=== PATIENT | male | born 1950 | race Caucasian/White ===

== ENCOUNTER 2021-12-22 11:58 | Observation (INO) ==
--- NOTE | 2021-11-25 12:04 | PAT Medication Instructions ---
Medication Instructions Date of Service November 25, 2021 Home Medications atorvastatin 40 mg tablet 40 mg PO PM bupropion HCl 300 mg 24 hr tablet, extended release 300 mg PO QAM clonazepam 0.5 mg tablet 0.5 mg PO BID dutasteride 0.5 mg capsule 0.5 mg PO QAM gabapentin 600 mg tablet 600 mg PO BID lamotrigine 200 mg tablet (Lamictal) 200 mg PO BID lisinopril 10 mg tablet 10 mg PO QAM multivitamin 1 tab PO QAM DO NOT take the morning of surgery lisinopril 10 mg tablet 10 mg PO QAM multivitamin 1 tab PO QAM Take morning of surgery With a small sip of water, OTHERWISE NOTHING TO EAT OR DRINK AFTER MIDNIGHT: bupropion HCl 300 mg 24 hr tablet, extended release 300 mg PO QAM clonazepam 0.5 mg tablet 0.5 mg PO BID dutasteride 0.5 mg capsule 0.5 mg PO QAM gabapentin 600 mg tablet 600 mg PO BID lamotrigine 200 mg tablet (Lamictal) 200 mg PO BID Take evening before surgery atorvastatin 40 mg tablet 40 mg PO PM clonazepam 0.5 mg tablet 0.5 mg PO BID gabapentin 600 mg tablet 600 mg PO BID lamotrigine 200 mg tablet (Lamictal) 200 mg PO BID Other Notes If you have any questions please call us at [phone] or [phone] or [phone] or [phone]
--- NOTE | 2021-11-26 13:25 | Anesthesiology Consultation ---
Date of Service November 26, 2021 Assessment & Plan (1) Encounter for pre-operative examination: - COVID screening: Per assessment on 11/26: No known COVID-19 positive contacts or current COVID-19 related symptoms. Travel screen negative. Surgeon arranging preop COVID testing (being done 12/17 d/t the holiday; [facility]). Awaiting results. - PCP office visit (11/09/21): "Medically cleared for surgery.. Has no cardiopulmonary symptoms." Chart Review Chart Review: Acceptable Risk for Surgery and Patient seen in Pre Admission Testing History Surgery Operation Date: 12/22/21 14:45 Proposed Procedures p Right Total Knee Arthroplasty - Everton Dsouza MD Height/Weight Height: 6 ft 3 in Weight: 109.4 kg Allergies Allergy/AdvReac Type Severity Reaction Status Date / Time No Known Allergies Allergy Verified 11/25/21 08:44 Medications Home Medications Medication Instructions Recorded Confirmed Last Taken atorvastatin 40 mg tablet 40 mg PO PM 11/25/21 11/25/21 Unknown bupropion HCl 300 mg 24 hr tablet, 300 mg PO QAM 11/25/21 11/25/21 Unknown extended release clonazepam 0.5 mg tablet 0.5 mg PO BID 11/25/21 11/25/21 Unknown dutasteride 0.5 mg capsule 0.5 mg PO QAM 11/25/21 11/25/21 Unknown gabapentin 600 mg tablet 600 mg PO BID 11/25/21 11/25/21 Unknown lamotrigine 200 mg tablet 200 mg PO BID 11/25/21 11/25/21 Unknown (Lamictal) lisinopril 10 mg tablet 10 mg PO QAM 11/25/21 11/25/21 Unknown multivitamin 1 tab PO QAM 11/25/21 11/25/21 Unknown Past Medical History Medical History Anxiety and depression Arthritis Bipolar disorder BPH (benign prostatic hyperplasia) History of COVID-19 Dx 03/2021 > symptoms at time: chills, fever > resolved Hyperlipidemia Hypertension Sleep apnea CPAP Exercise / Class Metabolic Activity II 4-5 Yardwork/Stairs/Walk up hill (one FS (no CP, no SOB)) Past Family History Family History Other No family history of adverse response to anesthesia Past Surgical History Surgical History H/O vasectomy History of arthroscopy RT/LEFT KNEE History of bladder surgery History of cataract surgery RT/LEFT History of colonoscopy History of tonsillectomy and adenoidectomy [place] teeth removed Past Anesthesia History No Hx of Anesthesia Complications and No Family Hx of Anesthesia Complications History of PONV No Hx of PONV and No Hx of Motion Sickness Social History Smoking Status: Never smoker Do You Dip or Chew Tobacco: No Hx Alcohol Use: Yes Alcohol type: hard liquor alcohol intake frequency: 0-2 drinks per day (1 drink/night) Hx Substance Use: No substance use type: does not use Review of Systems Patient denies chest pain, shortness of breath, dyspnea on exertion, fever, chills, cough, wheezing, palpitations. Physical Exam Vital Signs VITALS BP 114/65 P 55 TEMP 98.6 SP02 97%RA RESP 16 PHYSICAL Full cervical extension range of motion. Full TMJ range of motion. TMD 3 finger breaths Mallampati Score 1 Dentition: intact Lungs: clear throughout to auscultation Cardiac: regular rate and rhythm with occasional extra beats, no murmurs noted Spine: normal Carotid arteries: negative bruit Extremities: no edema Lab Results Anesthesia Preop Results Results Anesthesia Widget: PT 11.0 Seconds (9.0-12.0) 11/26/21 PTT 25.9 Seconds (21.0-31.0) 11/26/21 INR 1.0 (0.9-1.1) 11/26/21 HA1c 5.6 % (4.5-5.6) 11/26/21 Blood Type B Positive 11/26/21 Antibody Screen NEGATIVE 11/26/21 Testing Laboratory Results 10/27/21 SODIUM 144 POTASSIUM 4.4 CHLORIDE 28.5 CO2 105 BUN 20 CREATININE 1.08 GLUCOSE 110 UA bacteria none seen, negative leuk est/nitrite/blood Electrocardiogram Date: 11/09/21 SR with frequent ectopic ventricular beats at 72bpm. LAE. EKG done at PCP preop appt* Chest X-Ray Date: 11/26/21 FINDINGS: Frontal and lateral radiographs of the chest demonstrate the cardiomediastinal silhouette to be within normal limits. The lungs are clear of alveolar opacities. There is no evidence for effusion bilaterally. There is no evidence for vascular congestion. There is no acute osseous pathology. IMPRESSION: No acute cardiopulmonary disease.
--- NOTE | 2021-12-21 19:07 | History & Physical Report ---
Date of Service December 21, 2021 Assessment & Plan (1) Primary osteoarthritis of right knee: Plan: Treatment options discussed with the patient. He has failed conservative measures and would like to proceed with surgery. Risks, benefits and alternatives to surgery including but not limited to infection, DVT, pain, stiffness, need for revision surgery, damage to blood vessels, damage to nerves, PE, , were discussed with the patient and they wish to proceed. Plan on right total knee arthroplasty. Surgery scheduled for [facility] on 12/22/[address] Dsouza. Plan on OPPT post op. Will plan on aspirin 81mg BID for 1 mo post op for DVT prophylaxis. All quesitons answered. F/u post op. History of Present Illness Chief Complaint: Right knee pain Primary Care Provider: Self, Referred 71 year old male with PMHx significant for HTN, REMI, high cholesterol, bipolar disorder who presents with ongoing right knee pain. Pain interfering with his daily activities. He has failed conservative measures and would like to proceed with knee replacement. Patient denies headaches, sweats, fevers, chills, double vision, blurred vision, cough, sore throat, dysphagia, chest pain, sob, wheezing, n/v/d/c, numbness, tingling, fatigue, urinary symptoms, mood disorders. ROS positive for right knee pain and stiffness. Allergies Allergy/AdvReac Type Severity Reaction Status Date / Time No Known Allergies Allergy Verified 11/25/21 08:44 Home Medications Medication Instructions Recorded Confirmed Type atorvastatin 40 mg tablet 40 mg PO PM 11/25/21 11/25/21 History bupropion HCl 300 mg 24 hr tablet, 300 mg PO QAM 11/25/21 11/25/21 History extended release clonazepam 0.5 mg tablet 0.5 mg PO BID 11/25/21 11/25/21 History dutasteride 0.5 mg capsule 0.5 mg PO QAM 11/25/21 11/25/21 History gabapentin 600 mg tablet 600 mg PO BID 11/25/21 11/25/21 History lamotrigine 200 mg tablet 200 mg PO BID 11/25/21 11/25/21 History (Lamictal) lisinopril 10 mg tablet 10 mg PO QAM 11/25/21 11/25/21 History multivitamin 1 tab PO QAM 06/09/22 06/09/22 History Past Med/Surg History Medical History Anxiety and depression Arthritis Bipolar disorder BPH (benign prostatic hyperplasia) History of COVID-19 Dx 03/2021 > symptoms at time: chills, fever > resolved Hyperlipidemia Hypertension Sleep apnea CPAP Surgical History H/O vasectomy History of arthroscopy RT/LEFT KNEE History of bladder surgery History of cataract surgery RT/LEFT History of colonoscopy History of tonsillectomy and adenoidectomy [place] teeth removed Family History Other No family history of adverse response to anesthesia Social History Smoking Status: Never smoker Second Hand Exposure: No; Hx Alcohol Use: Yes Alcohol type: hard liquor Hx Substance Use: No Preferred Language: Kinyarwanda Outside Repairer Special Required: No Beliefs That Will Affect Care: None Current Living Situation: Spouse Feels Safe at Home: Yes Assistive Devices: CPAP and Glasses Review of Systems All systems reviewed & are unremarkable except as noted in HPI & below Physical Exam Constitutional: well developed and well nourished; no acute distress Eyes: PERRL, conjunctivae normal, anicteric sclerae ENMT: external ear and nose normal, oropharynx normal Neck: trachea midline, no thyromegaly Respiratory: normal respiratory effort, lungs clear to auscultation Cardiovascular: RRR, no murmur, no edema Musculoskeletal: Right knee: Valgus alignment. Moderate effusion. Lateral joint line tenderness, medial patellar and lateral patellar tenderness. Moderate crepitation. Positive Kendell's. Stable to valgus and varus stress. ROM 0-130 degrees Skin: no rashes, warm and dry Neurologic: patellar DTR's 2+ bilat, sensation intact Psychiatric: A+Ox3, euthymic affect Results & Data ([facility]) Diagnostic Findings Right knee: Tricompartmental degenerative changes. Valgus alignment bone on bone lateral compartment. There is periarticular osteophyte formation.
[~2021-12-22 11:58] MED LIST: ACETAMINOPHEN 500 MG TAB PO SCH; BUPIVACAINE 0.25% 30 ML VIAL ONE; BUPIVACAINE 0.5 % 5 MG/1 ML PF 10ML VIAL ONE; CeleBREX 200 MG CAP PO SCH; FAMOTIDINE 20 MG TAB PO SCH; GABAPENTIN 300 MG CAP PO SCH; LR 500ML BOLUS, THEN 15ML/HR IV SCH; METOCLOPRAMIDE HCL 10 MG TABLET PO SCH; ROPIVACAINE 0.5% HCL/PF 150 MG, BUPIVACAINE 0.75% MPF 20 ML, EPINEPHrine 30MG/30ML (OR ... INSTIL SCH; TRANEXAMIC ACID 1,000 MG **IV Intra-op IV SCH; TRANEXAMIC ACID 1,000 MG **IV Pre-op IV SCH; ceFAZolin 2000MG 2,000 MG/15 ML SYR IV SCH; dexAMETHasone 4 MG TAB PO SCH
[2021-12-22 12:50] LABS: Basophils # (auto) 0.05 K/uL (0-0.2); Eosinophils # (auto) 0.13 K/uL (0-0.50); Eosinophils % (auto) 2.6 %; Hematocrit (blood only) 46.1 % (40.1-51.0); Hemoglobin 15.4 g/dl (14.0-18.0); Immature Granulocytes # (auto) 0.01 K/uL (0.00-0.02); Immature Granulocytes % (auto) 0.2 %; Lymphocytes # (auto) 1.14 K/uL (1.2-3.4); Lymphocytes % (auto) 22.4 %; Mean Corpuscular Hemoglobin 30.5 pg (25.0-34.0); Mean Corpuscular Hgb Conc 33.4 g/dL (32.0-36.0); Mean Corpuscular Volume 91.3 fL (80.0-100.0); Mean Platelet Volume 9.2 fL (9.4-12.4); Monocytes # (auto) 0.56 K/uL (0.24-0.82); Neutrophils % (auto) 62.8 %; Platelet Count 237 K/uL (130-400); RDW Coefficient of Variation 11.9 % (11.5-14.5); RDW Standard Deviation 39.2 fL (36.4-46.3); Red Blood Count 5.05 M/uL (4.63-6.08); White Blood Count 5.09 K/ul (4.8-10.8)
--- NOTE | 2021-12-22 13:40 | History & Physical Bridge Note ---
Date of Service December 22, 2021 History & Physical Bridge Note I have examined the patient, reviewed the History & Physical and in the interval since the performance of the History & Physical I have noted the following changes of clinical significance: no changes noted
[2021-12-22] MEDS ORDERED: PROPOFOL IV EMULSION 10 MG/ML 20 ML VIAL IV ONE ×4 (15:10→17:18)
[2021-12-22] MEDS ORDERED: MIDAZOLAM HCL 1 MG/ML 2ML VIAL ONE (15:10)
[2021-12-22] MEDS ORDERED: fentaNYL citrate 100 MCG/2 ML VIAL ONE (15:10)
[2021-12-22] MEDS ORDERED: LIDOCAINE 2% 2 ML VIAL/AMP(20MG/ML) INFIL ONE ×2 (15:10→16:28)
[2021-12-22] MEDS ORDERED: EPINEPHrine INJ 1 MG/ML AMP ONE (15:27)
[2021-12-22] MEDS ORDERED: KETAMINE 50 MG/5 ML SYRINGE ONE (16:29)
--- NOTE | 2021-12-22 18:41 | Post Operative Brief Note ---
Immediate Post Op Note v1 Date of Surgery December 22, 2021 Pre & Post Diagnosis Operation Date: 12/22/21 13:55 Pre-Op Diagnosis: Unilateral Primary Osteoarthritis Right Knee Post-Op Diagnosis: Unilateral Primary Osteoarthritis Right Knee I identified the patient and participated in the time-out.: Yes Procedure Operation Date: 12/22/21 13:55 Actual Procedures p Right Total Knee Arthroplasty(Right), lateral release, application superficial wound VAC Everton Dsouza MD Surgeon Everton Dsouza MD Financial Sales Associate Ford FERREIRA, Ambrosio FERREIRA Estimated Blood Loss 15 Findings Consistent with Post-Op Diagnosis Specimens Bone cuts Drains Hemovac Drain Anesthesia Type MAC Spinal Regional Complications none Disposition Accompanied Patient To Recovery: No Overlapping Procedure I was immediately available: during the entire case.
--- NOTE | 2021-12-22 18:58 | Operative Report ---
Post Operative Report Pre & Post Diagnosis Operation Date: 12/22/21 13:55 Pre-Op Diagnosis: Unilateral Primary Osteoarthritis Right Knee Post-Op Diagnosis: Unilateral Primary Osteoarthritis Right Knee I identified the patient and participated in the time-out.: Yes Procedure Operation Date: 12/22/21 13:55 Actual Procedures p Right Total Knee Arthroplasty(Right), lateral release, application superficial wound VAC Everton Dsouza MD Surgeon Everton Dsouza MD Wrist Closer Ford FERREIRA, Ambrosio FERREIRA Estimated Blood Loss 15 Findings Consistent with Post-Op Diagnosis Specimens Bone cuts Drains 2 Hemovac Anesthesia Type MAC Spinal Regional Complications none Disposition Disposition: Recovery Room Indications 71-year male with chronic right knee pain failed conservative management. Patient has a valgus knee with [id number] lateral compartment and patellofemoral osteoarthritis grade 3 with some lateral translation of the patella on skyline patella view. Clinically has an effusion chronic swelling and some instability. Description of Procedure Patient was taken to the operating room placed supine on the operating table and anesthetized under spinal MAC regional block anesthesia. Exam under anesthesia demonstrated a 5 degree flexion contracture with good flexion to 135 degrees with large effusion some MCL laxity and a tight lateral compartment and tight IT band. A pneumatic tourniquet was placed about the thigh of the right lower extremity. The right lower extremity was prepped and draped in usual sterile fashion. The leg was elevated exsanguinated with an Esmarch bandage and the pneumatic tourniquet was raised to 300 mm mercury. An anterior incision was made across the right knee. The skin was incised longitudinally subcutaneous flaps were elevated and an incision was made through the medial retinaculum extending up into the mid third of the quadriceps tendon and extended down to the medial tibial tubercle. Intra-articular findings demonstrated [id number] lateral compartment with valgus knee. Cruciate ligaments are still intact. There is a chronic meniscus tear. Tricompartmental osteophytes with grade 4 trochlear OA and grade 3 patella OA and lateral tracking patella. The knee was exposed by excising the infrapatellar fat pad, excising the meniscal remnants and anterior cruciate ligament. Any inflamed synovial tissue was resected. The fat pad over the anterior femur was resected for placement of the component in that area. The lateral synovial bands were release. The femur was exposed. The custom femoral cutting block was pinned in position. Looked at the position of the distal femoral cutting block and it basically took no bone off the lateral side and the medial side was undercut compared to what the template was supposed to cut the femoral condylar cut at so we abandon the use of the custom femoral cutting block and went with conventional instruments. An intramedullary drill hole was made into the femur and the guide tania was placed and the distal femoral cut was made at 6 degree valgus cut. Drill holes for the implant were made matching the epicondylar axis to obtain the correct external rotation. The implant was sized for 12 which is the same as the implant chosen by the custom cutting guide MRI that was obtained. The distal femoral cutting block was applied. The distal femoral cut was made with the oscillating saw. The size 12 4-in-1 cutting block was placed. The anterior and posterior chamfer cuts were made. Bone was very hard in quality. The knee was extended and a subperiosteal peel lateral release was performed around the patella. The patella width was measured and width was reproduced using freehand cut technique. The 35 mil limeter symmetrical patella was used. We medialized the implant to help patellar tracking and beveled off the lateral side to prevent any impingement on the implant. 3 drill holes are made for the pegs. The tibia was exposed. An external tibial cutting guide was positioned to make a perpendicular cut the long axis of the tibia and add some posterior slope. The proximal cut was made with the oscillating saw. All osteophytes were resected. The lamina operator technician was used to assess ligamentous balance and the ligaments were balanced in extension and flexion. This required some lateral capsular releases and a subperiosteal release of some of the IT band off of the tibia. Some osteophytes were removed from the proximal tibia. There was a posterior medial osteophyte or loose body behind the medial tibia at the capsular tibial junction area. This was removed using a curved curette and rongeur. The tibia was reexposed and measured for a size G tibial component. This was externally rotated in line with the tibial tubercle and the fixation pins were drilled. The proximal tibia was fashioned with the drill and punch. The size 12 CR femoral trial was inserted. The trial MC inserts were used. The 11 mm insert gave balanced ligaments through full range of motion. The patella tracked with some slight lateral tilt and mid flexion so I did a lateral release leaving the synovium i ntact and this corrected the patella tracking through full motion with central tracking no tilt with no hand technique on the patella. The trials were removed. The orthomix anesthetic cocktail was injected per protocol. The knee was then copiously irrigated with pulsatile lavage saline solution. A bone plug was placed into the drill hole and the femoral canal. The final components were cemented with Refobacin bone cement. The final components were 12 standard CR right persona femoral component, G right tibia with a 14 x 30 stem, 11 mm MC right tibial polyethylene and a 35 symmetrical polyethylene patella. After the cement cured with the knee in full extension the Betadine soak was used per protocol. The knee joint was copiously irrigated with pulsatile lavage saline solution . 2 drains were brought out laterally and connected to a Hemovac. The quadriceps tendon and medial retinaculum were closed with interrupted [id number] #1 Vicryl sutures. The knee was taken through a full range of motion and repair was secure. Patient has 0 through 135 degrees range of motion. The subcutaneous tissues were closed with 2-0 Vicryl sutures and skin was closed with martha. A rachelle and Acticoat superficial wound VAC was applied and the patient tolerated the procedure well. Ford FERREIRA and Ambrosio FERREIRA both participated as broker assistant sequentially in the procedure. Ambrosio [place] assisted in the initiation of the procedure up to the point of going to conventional instruments and then Ford Gonzalez completed the remainder of the procedure including application of the superficial wound VAC. They assisted in soft tissue retraction, instrument management ,leg positioning, the closure and will participate in the postoperative care of the patient. I attest to the content of the Intraoperative Record and any orders documented therein. Any exceptions are noted below.
--- NOTE | 2021-12-22 19:07 | Anesthesiology Progress Note ---
Date of Service December 22, 2021 Anesthesia Post Procedure Vital Signs Vital Signs: Temp Pulse Pulse Resp BP Pulse Ox 12/22/21 19:05 36.3 C L 68 18 149/81 H 95 12/22/21 18:55 86 16 128/78 97 12/22/21 18:45 74 16 151/107 H 98 12/22/21 18:39 36.0 C L 72 16 160/98 H 98 12/22/21 12:16 36.7 C 73 20 134/87 97 Transfer of Care Handoff Completed per policy Notes Mental Status: alert / awake / arousable and participated in evaluation Patient Amnestic to Procedure: Yes Nausea / Vomiting: adequately controlled Pain: adequately controlled Airway Patency, RR, SpO2: stable & adequate BP & HR: stable & adequate Hydration State: stable & adequate Anesthetic Complications: no major complications apparent and Pt Satisfied with anesthetic care
--- NOTE | 2021-12-22 19:08 | XRay Report ---
XR knee RT 1 or 2V routine CLINICAL HISTORY: Surgical Post Op COMPARISON: None FINDINGS: Alignment of the total right knee arthroplasty is anatomic. There is no periprosthetic fra cture or unexpected radiopaque foreign body. Surgical drains and skin martha are noted. IMPRESSION: Expected findings following total right knee arthroplasty. ACT 112: Negative or not required by law. Electronically signed by: Homer Walters M.D. 12/22/2021 7:06 PM
[2021-12-22] MEDS ORDERED: TAMSULOSIN HCL 0.4 MG CAP PO PRN (19:42)
[2021-12-22] MEDS ORDERED: ONDANSETRON INJ 2 MG/ML 2 ML VIAL IV PRN (19:42)
[2021-12-22] MEDS ORDERED: MAGNESIUM HYDROXIDE SUSP 30 ML UDC PO PRN (19:42)
[2021-12-22] MEDS ORDERED: oxyCODONE HCL IR 5 MG TAB (IMMEDIATE RELEASE) PO PRN (19:42)
[2021-12-22] MEDS ORDERED: HYDROmorphone INJ 0.5 MG/0.5 ML SYR IV PRN (19:42)
[2021-12-22] MEDS ORDERED: bisacodyL 10 MG SUPP PR PRN (19:42)
[2021-12-22] MEDS ORDERED: METOCLOPRAMIDE HCL INJ 5 MG/ML 2 ML VIAL IV PRN (19:42)
[2021-12-22] MEDS ORDERED: NALOXONE HCL 0.4 MG/1 ML VIAL/CARP IV PRN (19:42)
[2021-12-22] MEDS: SODIUM CHLORIDE 0.9% 1000ML 1,000 ML IV SCH (20:31)
[2021-12-22] MEDS ORDERED: SENNA 8.6 MG TAB PO SCH (21:00)
[2021-12-22] MEDS ORDERED: ATORVASTATIN 40 MG TAB PO SCH (21:00)
--- NOTE | 2021-12-22 21:13 | Hospitalist Consultation ---
Date of Consultation December 22, 2021 Assessment & Plan (1) Primary osteoarthritis of right knee: - S/p right TKA, POD #0. Without complications. EBL 15 cc. Hemovac drain in place. - Defer ABX/IVF/pain management/DVT PPx to primary team. - Has rescue Narcan ordered as needed. - CBC and BMP in AM. Baseline creatinine ~1.08 based on outpatient labs from October of this year. (2) Hypertension: - Continue lisinopril pending stable renal function on a.m. BMP. - Slightly hypertensive this evening, suspect may be secondary to pain. (3) Hyperlipidemia: - Continue atorvastatin 40 mg at night. (4) Bipolar disorder: - Continue Lamictal 200 mg twice daily. (5) Sleep apnea: - CPAP at night. (6) BPH (benign prostatic hyperplasia): - Continue dutasteride 5 mg in AM. (7) Anxiety and depression: - Continue Wellbutrin 300 mg in a.m., clonazepam 0.5 mg twice daily, gabapentin 600 mg p.o. twice daily. - Observation on MedSurg per primary team. - ASA 81 mg twice daily for VTE PPx per primary team. - Full code. Supervising Physician Co-Signing Physician Notes Attending addendum: I have physically seen this patient, have supervised the PARI's activities, and agree with the H&P unless as otherwise noted. Assessment and Plan: Status post right total knee arthroplasty- seen postoperatively medically stable Hypertension- Continue senna Edith with hold parameters Follow renal function a.m. with BMP Hyperlipidemia- Continue atorvastatin Bipolar disorder- Continue Lamictal BPH- Continue dutasteride Monitor urine output Remaining orders notations as noted Will follow along during hospital stay History of Present Illness Reason for Consultation: medication management Requesting Physician: Everton Dsouza MD Attending Physician: Everton Dsouza MD History of Present Illness Jacobo Dhillon is a 71 y.o male with PMH of HTN, hyperlipidemia, REMI with CPAP, bipolar disorder, and BPH who presents today for right TKA after failing conservative management. Hospitalist group was consulted for post-operative medication management. Today, he is POD#0 and feels well. Denies fever/chills, chest pain, SOB, cough, abdominal pain, nausea, vomiting, focal weakness, numbness, or tingling. Allergies Allergy/AdvReac Type Severity Reaction Status Date / Time No Known Allergies Allergy Verified 12/22/21 12:20 Home Medications Medication Instructions Recorded Confirmed Type atorvastatin 40 mg tablet 40 mg PO PM 11/25/21 12/22/21 History bupropion HCl 300 mg 24 hr tablet, 300 mg PO QAM 11/25/21 12/22/21 History extended release clonazepam 0.5 mg tablet 0.5 mg PO BID 11/25/21 12/22/21 History dutasteride 0.5 mg capsule 0.5 mg PO QAM 11/25/21 12/22/21 History gabapentin 600 mg tablet 600 mg PO BID 11/25/21 12/22/21 History lamotrigine 200 mg tablet 200 mg PO BID 11/25/21 12/22/21 History (Lamictal) lisinopril 10 mg tablet 10 mg PO QAM 11/25/21 12/22/21 History multivitamin 1 tab PO QAM 11/25/21 12/22/21 History acetaminophen 500 mg tablet 1,000 mg PO Q8 14 Days #84 tab 12/23/21 Rx (Tylenol Extra Strength) aspirin 81 mg tablet,delayed 81 mg PO BID 30 Days #60 tab 12/23/21 Rx release oxycodone 5 mg tablet 5 mg PO Q4H PRN #30 tab MDD 6 12/23/21 Rx polyethylene glycol 3350 17 gram 17 g PO DAILY PRN #5 ea 12/23/21 Rx oral powder packet (Miralax) Patient History Medical History (Updated 12/22/21 @ 21:20 by Shital Goyal PA-C) Anxiety and depression Arthritis Bipolar disorder BPH (benign prostatic hyperplasia) History of COVID-19 Dx 03/2021 > symptoms at time: chills, fever > resolved Hyperlipidemia Hypertension Sleep apnea CPAP Surgical History H/O vasectomy History of arthroscopy RT/LEFT KNEE History of bladder surgery History of cataract surgery RT/LEFT History of colonoscopy History of tonsillectomy and adenoidectomy [place] teeth removed Family History Other No family history of adverse response to anesthesia Social History Smoking Status: Never smoker Second Hand Exposure: No; Do You Dip or Chew Tobacco: No; Hx Alcohol Use: Yes Alcohol type: hard liquor Hx Substance Use: No Preferred Language: Martiniquais Communication Ability: Effective Caddy/Caddie Supervisor Required: No Beliefs That Will Affect Care: None Current Living Situation: Spouse Feels Safe at Home: Yes Safety Concerns: Feels Safe At This Time Assistive Devices: Walker Assistive Devices Comment: READING GLASSES Review of Systems Review of Systems: Constitutional: No fever/chills, weakness, fatigue, myalgias, anorexia, night sweats Eyes: No diplopia, no worsening or blurred vision ENT: normal hearing, no trouble swallowing Respiratory: No cough, sputum, dyspnea at rest or on exertion Cardiovascular: No chest pain, tightness or palpitations Abdomen: No pain, nausea, vomiting, diarrhea or constipation : Denies dysuria, hematuria, increased urgency/frequency, urinary retention Musculoskeletal: No joint pain, calf pain, swelling Neurologic: No weakness, numbness/tingling, or balance problems Psychiatric: No anxiety or depression Skin: No rash or itch Physical Exam Physical Exam: General: awake, alert, no apparent distress Head: Normocephalic, atraumatic ENT: PERRL, EOMI, no pharyngeal exudate, mucous membranes moist Chest: Clear to auscultation, on room air, no adventitious breath sounds Cardiac: Regular rate and rhythm, no murmur, no JVD, normal peripheral pulses, good capillary refill Abdominal: NABS x 4 quadrants, soft, nontender to palpation, no rebound, guarding or tenderness Extremities: Normal inspection, no peripheral edema or erythema, calfs nontender to palpation Psych: Normal mood and affect Neuro: AAO x 3, strength intact bilaterally and rated 5/5, no motor deficits, speech is clear, no peripheral sensory deficits Skin: no rash or erythema Results & Data Results & Data ([facility]) Vital Signs (Past 12 Hours) Vital Signs Temp Pulse Pulse Resp BP Pulse Ox 12/22/21 20:36 36.3 C L 69 18 162/99 H 96 12/22/21 19:40 36.3 C L 69 18 157/96 H 96 12/22/21 19:20 78 18 122/79 94 12/22/21 19:05 36.3 C L 68 18 149/81 H 95 12/22/21 18:55 86 16 128/78 97 12/22/21 18:45 74 16 151/107 H 98 12/22/21 18:39 36.0 C L 72 16 160/98 H 98 12/22/21 12:16 36.7 C 73 20 134/87 97 Laboratory Results Abnormal lab results 12/22/21 Range/Units 12:19 MPV 9.2 L (9.4-12.4) fL Lymph # (Auto) 1.14 L (1.2-3.4) K/uL Diagnostic Findings Knee X-Ray 12/22/21 18:44 XR knee RT 1 or 2V routine CLINICAL HISTORY: Surgical Post Op COMPARISON: None FINDINGS: Alignment of the total right knee arthroplasty is anatomic. There is no periprosthetic fracture or unexpected radiopaque foreign body. Surgical drains and skin martha are noted. IMPRESSION: Expected findings following total right knee arthroplasty. ACT 112: Negative or not required by law. Electronically signed by: Homer Walters M.D. 12/22/2021 7:06 PM PG Care Time/CCT Total # of Minutes Spent Total Time Spent with Patient: Total time spent is greater than 50% in coordination of care (as documented) at patient's floor/unit and/or counseling patient: Coding Level of Care Code 38015 Office/OBS Consult Lvl 1 Diagnoses Primary osteoarthritis of right knee M17.11 Hypertension I10 Hyperlipidemia E78.5 Bipolar disorder F31.9 Sleep apnea G47.30 BPH (benign prostatic hyperplasia) N40.0 Anxiety and depression F41.9; F32.A
[2021-12-22] MEDS: clonazePAM 0.5 MG TAB PO SCH (21:33)
[2021-12-22] MEDS: ASPIRIN 81 MG ECTAB PO SCH (21:33)
[2021-12-22] MEDS: DOCUSATE SODIUM 100 MG CAP PO SCH (21:34)
[2021-12-22] MEDS: CeleBREX 200 MG CAP PO SCH (21:34)
[2021-12-22] MEDS: lamoTRIgine 100 MG TAB PO SCH (21:35)
[2021-12-22] MEDS: GABAPENTIN 600 MG TAB PO SCH (21:35)
[2021-12-22] MEDS: ACETAMINOPHEN 500 MG TAB PO SCH (21:36)
[2021-12-22] MEDS: DUTASTERIDE 0.5 MG SCH (23:03)
[2021-12-22] MEDS: ceFAZolin 2000MG 2,000 MG/15 ML SYR IV SCH (23:04)
[2021-12-23] MEDS: ACETAMINOPHEN 500 MG TAB PO SCH ×2 (05:10→13:15)
[2021-12-23 06:08] LABS: Hematocrit (blood only) 39.1 % (40.1-51.0); Hemoglobin 13.2 g/dl (14.0-18.0); Mean Corpuscular Hemoglobin 30.4 pg (25.0-34.0); Mean Corpuscular Hgb Conc 33.8 g/dL (32.0-36.0); Mean Corpuscular Volume 90.1 fL (80.0-100.0); Mean Platelet Volume 9.3 fL (9.4-12.4); Platelet Count 223 K/uL (130-400); RDW Coefficient of Variation 11.7 % (11.5-14.5); RDW Standard Deviation 38.4 fL (36.4-46.3); Red Blood Count 4.34 M/uL (4.63-6.08); White Blood Count 8.29 K/ul (4.8-10.8)
[2021-12-23] MEDS: SODIUM CHLORIDE 0.9% 1000ML 1,000 ML IV SCH (06:12)
[2021-12-23 06:34] LABS: BUN Creatinine Ratio 17.3 (10-20); Calcium 8.4 mg/dl (8.5-10.1); Est GFR (African American) 89.5 ml/min; Est GFR (Non-African American) 77.3 ml/min; Potassium 4.2 mmol/L (3.5-5.1)
--- NOTE | 2021-12-23 07:10 | Orthopedic Progress Note ---
Date of Service December 23, 2021 Assessment & Plan (1) Primary osteoarthritis of right knee: Plan: Postop day #1 right total knee arthroplasty -PT/OT -AM labs: Hemoglobin at 13.2 down from 15.4 preop. Acute blood loss anemia likely due to surgical loss versus dilutional effect. -DVT prophylaxis: SCDs, teds, aspirin 81 mg twice daily -Pain management as written -Discharge planning: Plan on home with home health PT. We will see how he does with therapy today and as long as therapy goes well and pain controlled could potentially go home today versus tomorrow. Admission and Anticipated Discharge Date Admission Date: December 22, 2021 Subjective Patient is postop day #1 right total knee. He is doing well postoperatively. He has no pain currently. No other complaints. Denies chest pain, shortness of breath, dizziness, lightheadedness, headache. Review of Systems Review of Systems: All systems reviewed & are unremarkable except as noted in Subjective Physical Exam Physical Exam: Right knee: Dressing is clean, dry, intact. Corry and Hemovac in place. Toes are mobile with good dorsiflexion. No calf tenderness. Distally neurovascular status and sensation intact. Constitutional: WD/WN, vitals as above Results & Data ([facility]) Vital Signs (Past 12 Hours) Vital Signs Temp Pulse Resp BP Pulse Ox 12/23/21 05:41 36.3 C L 60 18 127/82 97 12/23/21 03:23 36.3 C L 60 18 116/65 97 12/22/21 22:40 36.4 C L 72 18 138/76 95 12/22/21 21:40 36.5 C 65 18 137/81 96 12/22/21 20:40 36.5 C 61 18 130/84 96 12/22/21 20:36 36.3 C L 69 18 162/99 H 96 12/22/21 20:10 36.5 C 74 18 163/80 H 95 12/22/21 19:40 36.3 C L 69 18 157/96 H 96 12/22/21 19:20 78 18 122/79 94 Laboratory Results H & H 12/22/21 12/23/21 Range/Units 12:19 05:32 Hgb 15.4 13.2 L (14.0-18.0) g/dl Hct 46.1 39.1 L (40.1-51.0) %
[2021-12-23] MEDS: GABAPENTIN 600 MG TAB PO SCH (08:43)
[2021-12-23] MEDS: lamoTRIgine 100 MG TAB PO SCH (08:43)
[2021-12-23] MEDS: ASPIRIN 81 MG ECTAB PO SCH (08:44)
[2021-12-23] MEDS: CeleBREX 200 MG CAP PO SCH (08:44)
[2021-12-23] MEDS: DOCUSATE SODIUM 100 MG CAP PO SCH (08:44)
[2021-12-23] MEDS: DUTASTERIDE 0.5 MG SCH (08:50)
[2021-12-23] MEDS: clonazePAM 0.5 MG TAB PO SCH (08:50)
[2021-12-23] MEDS ORDERED: MULTIVITAMIN TAB PO SCH ×2 (09:00)
[2021-12-23] MEDS ORDERED: lisinopril 10 MG TAB PO SCH (09:00)
[2021-12-23] MEDS ORDERED: buPROPion XL 300 MG TABCR PO SCH (09:00)
[2021-12-23] MEDS: ceFAZolin 2000MG 2,000 MG/15 ML SYR IV SCH (09:39)
--- NOTE | 2021-12-23 09:57 | Hospitalist Progress Note ---
Date of Service December 23, 2021 Assessment & Plan (1) Primary osteoarthritis of right knee: Plan: - S/p right TKA, POD #1 - Recommend DVT ppx x 14 days (minimum), drug choice/dose/duration at ortho's discretion - Pain control as written by ortho - PT/OT - Hemovac drain management per ortho (2) Hypertension: Plan: - It appears Lisinopril was resumed; however, ideally should be held POD#1 d/t spinal anesthesia - Currently normotensive (3) Hyperlipidemia: Plan: - Continue atorvastatin 40 mg at night. (4) Bipolar disorder: Plan: - Continue Lamictal 200 mg twice daily. (5) Sleep apnea: Plan: - CPAP at night. (6) BPH (benign prostatic hyperplasia): Plan: - Continue dutasteride 5 mg in AM. - Also on PRN Tamsulosin (7) Anxiety and depression: Plan: - Continue Wellbutrin 300 mg in a.m., clonazepam 0.5 mg twice daily, gabapentin 600 mg p.o. twice daily. Plan: No further recommendations. Pt is suitable for discharge from medicine standpoint, therefore will sign off. Please feel free to notify if any acute needs should arise. Thank you for allowing us to participate in the care of your patient. Plan to be d/w Dr. Viviana Apodaca. Admission and Anticipated Discharge Date Admission Date: December 22, 2021 Subjective Patient seen on rounds today. He is resting comfortably in bedside chair. Currently working with PT during my visit. Denies cp, dyspnea, n/v/d, f/c, hea dache, or gu symptoms. Passing flatus, no BM yet. Voiding w/o issue. Eating and drinking well. Plan to return home with assistance. Has a first floor set up. Review of Systems Review of Systems: All systems reviewed and are unremarkable except as noted in HPI and below. Denies fever, chills, fatigue, headache, nasal congestion, sore throat, cough, chest pain, shortness of breath, palpitations, orthopnea, PND, abdominal pain, n/v/d, constipation, dysuria, hematuria, frequency, back pain, joint pain or swelling, easy bruising or bleeding, skin lesions or rashes. Physical Exam Physical Exam: GENERAL: 71 yo Well-developed, well-nourished WM. NAD. LUNGS: Clear to auscultation bilaterally. No W/R/R. CARDIOVASCULAR: Regular rate and rhythm. No M/G/R. No JVD. ABDOMEN: Soft, non-tender and non-distended. BS normoactive x 4 quad. EXTREMITIES: R knee dressed and wrapped in khai. Hemovac present. No edema. Non- tender. Peripheral pulses +2/4. Neg zay's sign. NEUROLOGIC: A&O x3. PSYCHIATRIC: Cooperative. Appropriate mood and affect. SKIN: Warm, dry, intact. No rashes or lesions. Results & Data Results & Data ([facility]) Vital Signs (Past 12 Hours) Vital Signs Temp Pulse Resp BP Pulse Ox 12/23/21 05:41 36.3 C L 60 18 127/82 97 12/23/21 03:23 36.3 C L 60 18 116/65 97 12/22/21 22:40 36.4 C L 72 18 138/76 95 Laboratory Results 12/23/21 05:32 12/23/21 05:32 PG Care Time/CCT Total # of Minutes Spent Total Time Spent with Patient: Total time spent is greater than 50% in coordination of care (as documented) at patient's floor/unit and/or counseling patient: Coding Level of Care Code 42717 Subseq Obs Care Lvl 2 Diagnoses Primary osteoarthritis of right knee M17.11 Hypertension I10 Hyperlipidemia E78.5 Bipolar disorder F31.9 Sleep apnea G47.30 BPH (benign prostatic hyperplasia) N40.0 Anxiety and depression F41.9; F32.A
--- NOTE | 2021-12-24 07:52 | Discharge Summary ---
Date of Service December 24, 2021 Admission HPI Per Admitting Provider 71 year old male with PMHx significant for HTN, REMI, high cholesterol, bipolar disorder who presents with ongoing right knee pain. Pain interfering with his daily activities. He has failed conservative measures and would like to proceed with knee replacement. Patient denies headaches, sweats, fevers, chills, double vision, blurred vision, cough, sore throat, dysphagia, chest pain, sob, wheezing, n/v/d/c, numbness, tingling, fatigue, urinary symptoms, mood disorders. ROS positive for right knee pain and stiffness. Admission Exam Per Admitting Provider Constitutional: well developed and well nourished; no acute distress Eyes: PERRL, conjunctivae normal, anicteric sclerae ENMT: external ear and nose normal, oropharynx normal Neck: trachea midline, no thyromegaly Respiratory: normal respiratory effort, lungs clear to auscultation Cardiovascular: RRR, no murmur, no edema Musculoskeletal: Right knee: Valgus alignment. Moderate effusion. Lateral joint line tenderness, medial patellar and lateral patellar tenderness. Moderate crepitation. Positive Kendell's. Stable to valgus and varus stress. ROM 0-130 degrees Skin: no rashes, warm and dry Neurologic: patellar DTR's 2+ bilat, sensation intact Psychiatric: A+Ox3, euthymic affect Principal Diagnosis Right knee osteoarthritis Discharge Exam Right knee: Dressing is clean, dry, intact. Corry and Hemovac in place. Toes are mobile with good dorsiflexion. No calf tenderness. Distally neurovascular status and sensation intact. Constitutional WD/WN, vitals as above Discharge Data Allergies Allergy/AdvReac Type Severity Reaction Status Date / Time No Known Allergies Allergy Verified 12/22/21 12:20 Consultations 12/16/21 12:51 Consult Hospitalist Routine Procedures Performed Operation Date: 12/22/21 13:55 Actual Procedures p Right Total Knee Arthroplasty(Right) - Everton Dsouza MD Ordered Studies 12/22/21 05:00 US - OR guided needle placemen Routine Hospital Course (1) Primary osteoarthritis of right knee: Postop day #1 right total knee arthroplasty -PT/OT -AM labs: Hemoglobin at 13.2 down from 15.4 preop. Acute blood loss anemia likely due to surgical loss versus dilutional effect. -DVT prophylaxis: SCDs, teds, aspirin 81 mg twice daily -Pain management as written -Discharge planning: Plan on home with home health PT. We will see how he does with therapy today and as long as therapy goes well and pain controlled could potentially go home today versus tomorrow. Patient progressed well with PT. Discharge home on POD#1. Lab Results 12/22/21 12/22/21 12/23/21 Range/Units 12:15 12:19 05:32 WBC 5.09 8.29 (4.8-10.8) K/ul RBC 5.05 4.34 L (4.63-6.08) M/uL Hgb 15.4 13.2 L (14.0-18.0) g/dl Hct 46.1 39.1 L (40.1-51.0) % MCV 91.3 90.1 (80.0-100.0) fL MCH 30.5 30.4 (25.0-34.0) pg MCHC 33.4 33.8 (32.0-36.0) g/dL RDW Std Deviation 39.2 38.4 (36.4-46.3) fL RDW Coeff of Jen 11.9 11.7 (11.5-14.5) % Plt Count 237 223 (130-400) K/uL MPV 9.2 L 9.3 L (9.4-12.4) fL Immature Gran % (Auto) 0.2 % Neut % (Auto) 62.8 % Lymph % (Auto) 22.4 % Ocean % (Auto) 11.0 % Eos % (Auto) 2.6 % Baso % (Auto) 1.0 % Neut # (Auto) 3.20 (1.4-6.5) K/uL Lymph # (Auto) 1.14 L (1.2-3.4) K/uL Ocean # (Auto) 0.56 (0.24-0.82) K/uL Eos # (Auto) 0.13 (0-0.50) K/uL Baso # (Auto) 0.05 (0-0.2) K/uL Immature Gran # (Auto) 0.01 (0.00-0.02) K/uL Sodium (136-145) mmol/L Potassium (3.5-5.1) mmol/L Chloride (98-107) mmol/L Carbon Dioxide (21-32) mmol/L Anion Gap (3-11) BUN (6-23) mg/dl Creatinine (0.6-1.4) mg/dl Est Cr Clr Drug Dosing ml/min Est GFR ( Amer) ml/min Est GFR (Non-Af Amer) ml/min BUN/Creatinine Ratio (10-20) Glucose (70-99(Fasting)) mg/dl Calcium (8.5-10.1) mg/dl SARS-CoV-2, RNA, NAAT NEGATIVE (NEGATIVE) 12/23/21 Range/Units 05:32 WBC (4.8-10.8) K/ul RBC (4.63-6.08) M/uL Hgb (14.0-18.0) g/dl Hct (40.1-51.0) % MCV (80.0-100.0) fL MCH (25.0-34.0) pg MCHC (32.0-36.0) g/dL RDW Std Deviation (36.4-46.3) fL RDW Coeff of Jen (11.5-14.5) % Plt Count (130-400) K/uL MPV (9.4-12.4) fL Immature Gran % (Auto) % Neut % (Auto) % Lymph % (Auto) % Ocean % (Auto) % Eos % (Auto) % Baso % (Auto) % Neut # (Auto) (1.4-6.5) K/uL Lymph # (Auto) (1.2-3.4) K/uL Ocean # (Auto) (0.24-0.82) K/uL Eos # (Auto) (0-0.50) K/uL Baso # (Auto) (0-0.2) K/uL Immature Gran # (Auto) (0.00-0.02) K/uL Sodium 138 (136-145) mmol/L Potassium 4.2 (3.5-5.1) mmol/L Chloride 104 (98-107) mmol/L Carbon Dioxide 29 (21-32) mmol/L Anion Gap 5 (3-11) BUN 17 (6-23) mg/dl Creatinine 0.98 (0.6-1.4) mg/dl Est Cr Clr Drug Dosing 92.0 ml/min Est GFR ( Amer) 89.5 ml/min Est GFR (Non-Af Amer) 77.3 ml/min BUN/Creatinine Ratio 17.3 (10-20) Glucose 130 H (70-99(Fasting)) mg/dl Calcium 8.4 L (8.5-10.1) mg/dl SARS-CoV-2, RNA, NAAT (NEGATIVE) Total Time Total Time Spent Total Time Spent (In Minutes): 20 Discharge Plan Discharge Items Patient Disposition: Home - Home Health Services Reason For Visit: Unilateral Primary Osteoarthritis Right Knee Discharge Diagnosis: Right knee osteoarthritis Activity: Per Instructions section Non-emergency contact: Surgeon Call non-emergency contact if: you have any medication questions, your pain is not controlled, your pain is concerning for you, you have a fever, your temperature is above 101, your wound has increased redness and your wound has increased drainage Follow-up/Referrals: Everton Dsouza MD [Surgeon] - (Follow up with Dr. Dsouza in or his PA Juancarlos Gonzalez in 2 weeks from the day of surgery for your first check up.) PCP,NO [Physician] - Diet: Regular Addtl Attending Provider Instructions: ACTIVITY RECOMMENDATIONS: SELF CARE INSTRUCTIONS AFTER TOTAL KNEE REPLACEMENT A. You may need to continue a physical therapy program after discharge from the hospital. There are several options available to you. Your doctor will assist you in selecting the best one for you. 1. An out-patient facility 2 to 3 times a week for therapy or home therapy. 2. Continue working on all exercises taught to you in the hospital. Your goals should be to increase bending of your knee to 90 degrees and beyond and to fully straighten your knee. B. You may progress at your own pace from walking with a walker or crutches to a cane; then to no assistive devices. C. Make walking a part of your daily routine. Be up as much as comfortable with rest periods throughout the day. Rest with leg elevation is very important. Use the ice wrap frequently for the first 3-4 weeks. D. There are no restrictions on activities. You may ride in a car, shop, participate in touch up painter hand and all social activities. E. Wear the long elastic stockings (ESTEPHANIE hose) 20 hours a day for 2 weeks after surgery. They can be removed several times a day for laundering and for a bath. F. You may shower, no tub baths until cleared by your doctor. SPECIAL CARE INSTRUCTIONS: VERY IMPORTANT TO READ AND REVIEW A. There are a few signs you need to watch for after you are home. Call [facility] if you notice any of the followin. Increased severe knee pain. Some pain is expected especially when you exercise. 2. Increased swelling in your leg or knee; pain or swelling of the calf muscle in either lower leg. 3. Any fluid drainage from the incision. 4. Shortness of breath or chest pain. B. Please call [facility] at if you have any concerns or questions about your operation or recovery. The doctor or his nurse will return your call promptly. C. You must take antibiotics before dental work, bladder, bowel or other surgery. Your doctor will provide you with a permanent care to carry describing this precaution. IMPORTANT: * REMEMBER TO TAKE ASPIRIN, 81 MG, TWICE DAILY FOR 4 WEEKS UNLESS OTHERWISE DIRECTED. THIS IS YOUR BLOOD THINNER. * HIGH RISK PATIENTS MAY BE PRESCRIBED A STRONGER BLOOD THINNER. THIS WILL BE PROVIDED AT DISCHARGE. * CALL IF INCREASED PAIN, REDNESS, DRAINAGE OR FEVER GREATER THAT 101. * WEAR ESTEPHANIE HOSE 20 HOURS PER DAY FOR 2 WEEKS. This is a large suction dressing covering your incision. This will help pull any excess drainage from the wound and allow your incision to heal properly. You may shower with this if you can keep the unit outside of the shower. If any bleeding or leakage is noted please call your doctor's office. This will remain on your incision for 7 days and then should be removed. This can be done yourself or by the home nursing staff if applicable. The entire unit is disposable once removed. Once removed, keep incision clean and dry. If redness or drainage is noted, please call your surgeon. IF INCISION IS LEAKING THROUGH DRESSING, CALL THE OFFICE . FOLLOW UP VISIT: If appointment is not already scheduled: Please call [facility] to make a follow-up appointment for 2 weeks after your surgery at . Stand-Alone Forms: My Clarity, Opioid Pain Management, Smoking Cessation Medications and DC Order Prescriptions: New aspirin 81 mg Tablet,Delayed Release (Dr/Ec) 81 mg PO BID 30 Days Qty: 60 RF: 0 acetaminophen [Tylenol Extra Strength] 500 mg Tablet 1,000 mg PO Q8 14 Days Qty: 84 RF: 0 polyethylene glycol 3350 [Miralax] 17 gram powder in packet 17 g PO DAILY PRN (Reason: constipation) Qty: 5 RF: 0 oxycodone 5 mg Tablet 5 mg PO Q4H MDD 6 PRN (Reason: pain) Qty: 30 RF: 0 Continued atorvastatin 40 mg Tablet 40 mg PO PM RF: 0 gabapentin 600 mg Tablet 600 mg PO BID RF: 0 lamotrigine [Lamictal] 200 mg Tablet 200 mg PO BID RF: 0 clonazepam 0.5 mg Tablet 0.5 mg PO BID RF: 0 lisinopril 10 mg Tablet 10 mg PO QAM RF: 0 dutasteride 0.5 mg Capsule 0.5 mg PO QAM RF: 0 bupropion HCl 300 mg Tablet Extended Release 24 Hr 300 mg PO QAM RF: 0 multivitamin Tablet 1 tab PO QAM RF: 0 Discharge Orders: Discharge Order (Routine); Ordered 12/23/21 Ordered By: Ambrosio Espana Admission Data Admit Date/Time: 12/22/21 18:44 Attending Provider: Everton Dsouza Admit Provider: Everton Dsouza Other Providers: Sammy Apodaca ; Jax,Home Health Other Interventions: Discharge Summary Assessment (RN) Last Done: 12/23/21 13:31
== END 2021-12-23 14:58 | disposition home health service (06) ==
LOC: 3E 11:58 → ASU 11:58